=== PATIENT | female | born 1990 | race African-American/Black ===

== ENCOUNTER 2016-09-15 22:07 | Emergency (ER) | payer MEDICAID ==
[2016-09-15 23:12] VITALS: BP 149/76
== END 2016-09-15 23:12 | disposition home or self-care (01) ==
LOC: ED 22:07
DX: L30.4 Erythema intertrigo (principal)

== ENCOUNTER 2017-03-15 23:13 | Emergency (ER) | payer MEDICAID ==
[~2017-03-15] VITALS: Ht 162.6 cm; Wt 103.9 kg
[2017-03-16 01:46] VITALS: BP 125/73
== END 2017-03-16 01:46 | disposition home or self-care (01) ==
LOC: ED 23:13
DX: S39.012A Strain of muscle, fascia and tendon of lower back, initial encounter (principal); N39.0 Urinary tract infection, site not specified; M54.32 Sciatica, left side; R05 Cough; X58.XXXA Exposure to other specified factors, initial encounter; Y93.89 Activity, other specified; Y99.8 Other external cause status; Y92.89 Other specified places as the place of occurrence of the external cause

== ENCOUNTER 2017-05-13 20:10 | Emergency (ER) | payer MEDICAID ==
[~2017-05-13] VITALS: Ht 162.6 cm; Wt 103.4 kg
[2017-05-13 20:15] VITALS: Ht 162.6 cm; Wt 103.4 kg
[2017-05-13 22:26] VITALS: BP 126/62
== END 2017-05-13 22:26 | disposition home or self-care (01) ==
LOC: ED 20:10
DX: F07.81 Postconcussional syndrome (principal); G44.309 Post-traumatic headache, unspecified, not intractable; M54.2 Cervicalgia; J45.909 Unspecified asthma, uncomplicated; W18.30XA Fall on same level, unspecified, initial encounter; Y93.89 Activity, other specified; Y99.8 Other external cause status; Y92.89 Other specified places as the place of occurrence of the external cause
CPT/HCPCS: J1885

== ENCOUNTER 2017-09-08 03:02 | Emergency (ER) | payer OTHER ==
[2017-09-08 03:57] VITALS: BP 133/76
== END 2017-09-08 03:57 | disposition home or self-care (01) ==
LOC: ED 03:02
DX: S93.601A Unspecified sprain of right foot, initial encounter (principal); X50.1XXA Overexertion from prolonged static or awkward postures, initial encounter; Y93.89 Activity, other specified; Y99.8 Other external cause status; Y92.512 Supermarket, store or market as the place of occurrence of the external cause
CPT/HCPCS: Q0092

== ENCOUNTER 2018-06-05 16:00 | Emergency (ER) | payer OTHER ==
[~2018-06-05] VITALS: Ht 162.6 cm; Wt 95.9 kg
[2018-06-05 16:17] VITALS: Ht 162.6 cm; Wt 95.9 kg
[2018-06-05 20:25] VITALS: BP 130/80
== END 2018-06-05 20:25 | disposition home or self-care (01) ==
LOC: ED 16:00
DX: B35.4 Tinea corporis (principal); J45.909 Unspecified asthma, uncomplicated
CPT/HCPCS: J7613

== ENCOUNTER 2018-11-01 20:14 | Emergency (ER) | payer OTHER ==
[~2018-11-01] VITALS: Ht 162.6 cm; Wt 97.5 kg
[2018-11-01 20:21] VITALS: Ht 162.6 cm; Wt 97.5 kg
[2018-11-01 22:19] VITALS: BP 120/77
== END 2018-11-01 22:19 | disposition home or self-care (01) ==
LOC: ED 20:14
DX: R05 Cough (principal); J02.9 Acute pharyngitis, unspecified; E86.0 Dehydration; R09.81 Nasal congestion; J45.909 Unspecified asthma, uncomplicated
CPT/HCPCS: J1885

== ENCOUNTER 2019-04-26 02:03 | Emergency (ER) | payer OTHER ==
[~2019-04-26] VITALS: Ht 162.6 cm; Wt 101.2 kg
[2019-04-26 02:07] VITALS: Ht 162.6 cm; Wt 101.2 kg
[2019-04-26 04:10] VITALS: BP 115/69
== END 2019-04-26 04:10 | disposition home or self-care (01) ==
LOC: ED 02:03
DX: J45.901 Unspecified asthma with (acute) exacerbation (principal)
CPT/HCPCS: J1100; J7613; J7644

== ENCOUNTER 2020-01-29 22:35 | Emergency (ER) | payer OTHER ==
[~2020-01-29] VITALS: Ht 162.6 cm; Wt 96.6 kg
[2020-01-29 22:45] VITALS: Ht 162.6 cm; Wt 96.6 kg
[2020-01-29 23:46] LABS: BASOPHIL % 1.6 % (0-2); PLATELET COUNT 211 x10^3mcL (130-400); RED CELL DISTRIBUTION WIDTH 15.4 % (11.5-14.5)
[2020-01-29 23:49] LABS: CARBON DIOXIDE 23.7 mmol/L (21-32); CHLORIDE SERUM 105 mmol/L (98-107); GFR1 > 60 mL/min; GLUCOSE SERUM 86 mg/dL (74-106); POTASSIUM SERUM 3.6 mmol/L (3.5-5.1); SODIUM SERUM 137 mmol/L (136-145)
[2020-01-29 23:53] LABS: ALBUMIN 4.1 g/dL (3.4-5.0); ALKALINE PHOSPHATASE 41 U/L (46-116); ALT/SGPT 26 U/L (14-59); AST/SGOT 20 U/L (15-37); BILIRUBIN TOTAL 0.5 mg/dL (0.20-1.00); CHOLESTEROL 171 mg/dL (<200); TOTAL PROTEIN, SERUM 7.6 g/dL (6.4-8.2)
[2020-01-30 00:33] VITALS: BP 121/62
== END 2020-01-30 00:33 | disposition home or self-care (01) ==
LOC: ED 22:35
PROVIDERS: Specialist
DX: R55 Syncope and collapse (principal); T67.9XXA Effect of heat and light, unspecified, initial encounter; J45.909 Unspecified asthma, uncomplicated; X58.XXXA Exposure to other specified factors, initial encounter; Y93.89 Activity, other specified; Y92.89 Other specified places as the place of occurrence of the external cause; Y99.8 Other external cause status
CPT/HCPCS: G0480